=== PATIENT | female | born 1950 | race Caucasian/White ===

== ENCOUNTER 2018-11-02 07:56 | Day surgery (SDC) | payer OTHER ==
[~2018-11-02 07:56] MED LIST: LACTATED RINGER'S 1,000 ML IV; TETRACAINE 0.5% 4 ML OPH OPER
[2018-11-02] MEDS: PHENYLephrine 10% 5 ML OPH OPER (09:13)
[2018-11-02] MEDS: BROMFENAC SODIUM 1.7 ML OPH DROP OPER (09:14)
[2018-11-02] MEDS: CYCLOPENTOLATE 2% 2 ML OPH OPER (09:15)
[2018-11-02] MEDS: TROPICAMIDE 1% 3 ML OPH OPER (09:16)
[2018-11-02] MEDS: MOXIFLOXACIN 0.5% 3 ML OPH OPER (09:17)
[2018-11-02] MEDS: LIDOCAINE 3.5% GEL TUBE OPER (09:18)
[2018-11-02] MEDS ORDERED: DIPHENHYDRAMINE 50 MG INJ IV (10:30)
[2018-11-02] MEDS ORDERED: ONDANSETRON 4 MG INJ IV (10:30)
[2018-11-02] MEDS ORDERED: OXYCODONE/ACETAMINOPHEN (5/325) TAB PO (10:30)
[2018-11-02] MEDS ORDERED: LABETALOL HCL 20MG INJ IV (10:30)
[2018-11-02] MEDS ORDERED: ACETAMINOPHEN 325 MG TAB PO (10:30)
[2018-11-02] MEDS ORDERED: ACETAMINOPHEN 500 MG TAB PO (10:30)
[2018-11-02] MEDS ORDERED: ALBUTEROL 0.083% (NEB) 2.5 MG/3 ML AMP HHN (10:30)
[2018-11-02] MEDS ORDERED: hydrALAzine 20 MG INJ IV (10:30)
[2018-11-02] MEDS ORDERED: NA HYALURONATE/CHONDROITIN 0.5 ML SYG (11:43)
[2018-11-02] MEDS ORDERED: TOBRAMYCIN/DEXAMETH 3.5 GM OPH OINT (11:43)
[2018-11-02] MEDS: CARBACHOL 0.01% 1.5 ML OPH INJ (11:43)
[2018-11-02] MEDS: LIDOCAINE 1%/EPI 30 ML INJ (11:43)
[2018-11-02] MEDS ORDERED: TRYPAN BLUE 0.5 ML SYG IO (11:57)
[2018-11-02] MEDS ORDERED: CEFAZOLIN 1 GM INJ (12:15)
[2018-11-02] MEDS: FENTAnyl 50 MCG/ML VIAL IV (13:39)
== END 2018-11-02 15:00 | disposition home or self-care (01) ==
LOC: SDS 07:56
DX: H25.041 Posterior subcapsular polar age-related cataract, right eye (principal); H21.81 Floppy iris syndrome; E78.5 Hyperlipidemia, unspecified; E03.9 Hypothyroidism, unspecified; E11.22 Type 2 diabetes mellitus with diabetic chronic kidney disease; I12.9 Hypertensive chronic kidney disease with stage 1 through stage 4 chronic kidney disease, or unspecified chronic kidney disease; N18.9 Chronic kidney disease, unspecified; J45.909 Unspecified asthma, uncomplicated; E11.319 Type 2 diabetes mellitus with unspecified diabetic retinopathy without macular edema
CPT/HCPCS: 66984; 82962